=== PATIENT | male | born 2000 | race Hispanic/Latino ===

== ENCOUNTER 2023-01-25 15:11 | Emergency (ER) | payer OTHER, SELFPAY ==
[2023-01-25] MEDS ORDERED: traMADol HCl 50 MG TAB ONE (15:44)
== END 2023-01-25 16:30 | disposition home or self-care (01) ==
LOC: CSHERS 15:11
DX: S70.02XA Contusion of left hip, initial encounter (principal); S70.01XA Contusion of right hip, initial encounter; V49.40XA Driver injured in collision with unspecified motor vehicles in traffic accident, initial encounter